=== PATIENT | male | born 2000 | race Caucasian/White ===

== ENCOUNTER 2022-01-22 00:53 | Observation (INO) | payer BC ==
--- OUTSIDE RECORDS SUMMARY | 2022-01-22 00:55 | XMS REPORT | Continuity of Care Document ---
:[address] [facility] [place] [facility] t Address [address] [place] [address] Care Team Providers Name Role Phone GEOFFREY MIN Attending Clinician Unavailable Sangeeta Attending Clinician Unavailable MARTHA BUTLER Attending Clinician Unavailable Physician, Primary or Family Admitting Clinician UnavailAndrew Foreman Admitting Clinician Unavailable Payers Payer Name Policy Type Policy Number Effective Date Expiration Date S ource Problems This patient has no known problems. Allergies, Adverse Reactions, Alerts Allergy Allergy Status Severity Reaction(s) Onset Inactive Treating Comm ents Source Name Type Date Date Clinician No Known DA Active U 2019-09 [facility] [place] [facility] No Known DA Active U 2019-09 [facility] 0-10 [place] [facility]: d [facility] No Known DA Active U 2001- [facility] Contrast 1-16 [place] Allergie 00:00: d 00 [facility] No Known DA Active U 2001- [facility] Drug 1-16 [place] Allergie 00:00: d [facility] No Known DA Active U 2001- [facility] Food 1-16 [place] [facility]: d [facility] No Known DA Active U 2001- [facility] Other 1-16 [facility] Allerg 00:00: d [facility] Medications This patient has no known medications. Procedures This patient has no known procedures. Encounters Start End Encounter Admission Attending Care Care Encounter Source Date/Time Date/Time Type Type Clinicians Facility Department ID 2020-12-22 Inpatient HCAKW MARGE [id number] [facility] 01:34:00 [id number] [facility] 2020-12-16 Inpatient [facility]KW MARGE [id number] [facility] 19:49:00 [id number] [facility] 2020-07-11 Inpatient HCAKW MARGE [id number] [facility] 19:05:00 [id number] [facility] 2020-06-13 Inpatient HCAKW MARGE [id number] [facility] 18:18:00 [id number] [facility] 2022-01-17 2022-01-17 Emergency E LARRY MIN [id number] LARRY 01:10:00 02:56:00 REGINA 2022-01-16 2022-01-16 Emergency EM Sangeeta, HCAKW MARGE [id number] [facility] 03:27:00 08:00:00 [place] 21 [facility] 2022-01-16 2022-01-16 Emergency EM Sangeeta, HCAKW THERON [id number] [facility] 03:27:00 08:00:00 Dana-Chin [id number] [facility] 2021-12-13 2021-12-13 Emergency E LARRY BUTLER DWAYNE 7501 DWAYNE 00:22:00 05:15:00 INDIRA Results Test Description Test Time Test Comments Results Result Comments Source BASIC METABOLIC PANEL 2022-01-16 05:25:00 Test Item Value Reference Range Interpretation Comme nts SODIUM (test code = NA) 139 mmol/L 137-145 N POTASSIUM (test code = K) 4.3 mmol/L 3.4-5.0 N CHLORIDE (test code = CL) 99 mmol/L 98-107 N CARBON DIOXIDE (test code = 30 mmol/L 22-30 N CO2) ANION GAP (test code = GAP) 15 GLUCOSE (test code = GLU) 275 mg/dL 74-106 H BLOOD UREA NITROGEN (test code 12 mg/dL 9-20 N = BUN) GLOMERULAR FILTRATION RATE 130 >60 T he estimated glomerular (test code = GFR) filtration rate is computed usingpatient ra ce, age (>18), sex, and serum creatinine. If anyof the neede d data elements are missing the Laboratory cannot compute an estimation of the glomerular filtration rate. CREATININE (test code = CREAT) 0.8 mg/dL 0.7-1.3 N CALCIUM (test code = CA) 9.4 mg/dL 8.4-10.2 N INDEX HEMOLYSIS (test code = 68 Index/DL 0-100 N HEMINDEX) [id number] 05:25:00 Test Item Value Reference Range Interpretation Comments TROPONIN-I < 0.012 ng/mL 0.012-0.033 L (test code = TROPI) Kimberly e be advised of the updated reference range s for the new Chemistry instrumentation . * * VITROS TROPONIN I CRITERIANORM AL PATIENT W/O CIRCULATING TNI: 0.012-0.033 ng/mLCIRCULATIN G TNI PRESENT: 0.034- 0.119 ng/mL(MAY BE AT RISK OF AMI)AMI DIAGNOS TIC CUTOFF: >/= 0.1 20 ng/mL~~~~~~~~~~ ~~~~~~~~~~ ~~~~~~~~~~~~~~~ ~~~~~~~~~~ ~~~~~~~~~~~~~~T he use of serial sampling and testing protoco l is arecommended pr actice.An elevated tropon in level alone is often not sufficient robertson iagnosis of myocardial i nfarction. Troponin result s obtained by different as says may vary.Evaluation of the extent of myoca rdial damage based on increase of troponin wou ld be valid only if similarmethodol ogy is used.~~~~~~~~~~ ~~~~~~~~~~ ~~~~~~~~~~~~~~~ ~~~~~~~~~~ ~~~~~~~~~~~~~~ A POSITIVE BIAS M AY OCCUR FOR PATIENTS TAKING BIOTIN SUPPLEMENTS~~~~ ~~~~~~~~~~ ~~~~~~~~~~~~~~~ ~~~~~~~~~~ ~~~~~~~~~~~~~~~ ~~~~~ CBC W/AUTO [id number] 04:53:00 Test Item Value Reference Range Interpretation Comments WHITE BLOOD CELL (test code = 10.8 x10 3/uL 5.0-12.0 N WBC) RED BLOOD CELL (test code = 5.63 x10 6/uL 4.70-6.10 N RBC) HEMOGLOBIN (test code = HGB) 16.8 g/dL 14.0-18.0 N HEMATOCRIT (test code = HCT) 47.8 % 37.0-49.0 N MEAN CELL VOLUME (test code = 85 fL 80-94 N MCV) MEAN CELL HGB (test code = MCH) 29.8 pg 27-31 N MEAN CELL HGB CONCENTRATION 35.1 g/dL 33-37 N (test code = MCHC) RED CELL DISTRIBUTION WIDTH 11.9 % 11.5-15.5 N (test code = RDW) PLATELET COUNT (test code = 255 x10 3/uL 130-400 N PLT) MEAN PLATELET VOLUME (test code 9.0 fL 9.4-16.4 L = MPV) NEUTROPHIL % (test code = NT%) 65.2 % 43-65 H IMMATURE GRANULOCYTE % (test 0.9 % 0.0-2.0 N code = IG%) LYMPHOCYTE % (test code = LY%) 25.2 % 20.5-45.5 N MONOCYTE % (test code = MO%) 7.2 % 5.5-11.7 N EOSINOPHIL % (test code = EO%) 1.0 % 0.9-2.9 N BASOPHIL % (test code = BA%) 0.5 % 0.2-1.0 N NUCLEATED RBC % (test code = 0.0 % 0-1.0 N NRBC%) NEUTROPHIL # (test code = NT#) 7.07 x10 3/uL 2.2-4.8 H IMMATURE GRANULOCYTE # (test 0.10 x10 3/uL 0-0.03 H code = IG#) LYMPHOCYTE # (test code = LY#) 2.73 x10 3/uL 1.3-2.9 N MONOCYTE # (test code = MO#) 0.78 x10 3/uL 0.3-0.8 N EOSINOPHIL # (test code = EO#) 0.11 x10 3/uL 0.0-0.2 N BASOPHIL # (test code = BA#) 0.05 x10 3/uL 0.0-0.1 N - XR CHEST 1 [id number] 04:15:00 [facility] 2000 Sex: M [place]: St: PRE Name: PIA BENÍTEZ [facility] : 2000 Age/S: 21/M [address] Unit #: [id number] Loc: [place] [address] Phys: Kaitlin Rutherford MD Acct: [id number] Dis Date: Status: PRE ER PHONE #: [phone] Exam Date: 01/16/2022350 FAX #: [phone] Reason: left chest pain EXAMS: CPT CODE: [id number] XR CHEST 1 V 09282 DICTATION LOCATION: H48 HISTORY: Male, 21 years of age with left chest pain EXAM: CHEST X-RAY, ONE VIEW COMPARISON: 12/22/2020 COMMENT: Frontal view of the chest is provided. No focal infiltrate, consolidation, mass lesion, or effusion is seen. Cardiac silhouette is within normal limits. No acute bony abnormalities. IMPRESSION: No acute infiltrate or effusion. at 0418 Reported and signed by: Leatha Dhillon MD CC: Technologist: CARLOS TALLEY Trnscrd Date/Time/By: 01/16/2022 (0415) : By: DavonteCLW PAGE 1 Signed Report [place]: St: PRE Name: PIA BENÍTEZ [facility] : 2000 Age/S: 21/M [address] Unit #: [id number] Loc: [place] [address] Phys: Kaitlin Rutherford MD Acct: [id number] Dis Date: Status: PRE ER PHONE #: [phone] Exam Date: 01/16/2022350 FAX #: [phone] Reason: left chest pain EXAMS: CPT CODE: [id number] XR CHEST 1 V 31298 <Continued> Orig Print D/T: S: 01/16/2022 (0418) PAGE 2 Signed ReportBASIC METABOLIC [id number] 04:47:00 Test Item Value Reference Range Interpretation Comments SODIUM (test code = 136 mmol/L 137-145 L NA) POTASSIUM (test code 4.0 mmol/L 3.4-5.0 N = K) CHLORIDE (test code = 98 mmol/L 98-107 N CL) CARBON DIOXIDE (test 30 mmol/L 22-30 N code = CO2) GLUCOSE (test code = 249 mg/dL 74-106 H GLU) BLOOD UREA NITROGEN 12 mg/dL 9-20 N (test code = BUN) GLOMERULAR FILTRATION 153 >60 The es timated RATE (test code = glomerular filtration GFR) rate is compute d usingpatient ra ce, age (>18), sex, and serum creatinine. If anyof the needed data elements are mi ssing the Laboratory cannot compute an carmen mation of the glomerul ar filtration rate . CREATININE (test code 0.7 mg/dL 0.7-1.3 N = CREAT) CALCIUM (test code = 9.2 mg/dL 8.4-10.2 N CA) CBC W/AUTO [id number] 04:35:00 Test Item Value Reference Range Interpretation Comments WHITE BLOOD CELL (test code = 8.1 x10 3/uL 5.0-12.0 N WBC) RED BLOOD CELL (test code = 5.34 x10 6/uL 4.70-6.10 N RBC) HEMOGLOBIN (test code = HGB) 15.6 g/dL 14.0-18.0 N HEMATOCRIT (test code = HCT) 43.6 % 37.0-49.0 N MEAN CELL VOLUME (test code = 82 fL 80-94 N MCV) MEAN CELL HGB (test code = MCH) 29.2 pg 27-31 N MEAN CELL HGB CONCENTRATION 35.8 g/dL 33-37 N (test code = MCHC) RED CELL DISTRIBUTION WIDTH 12.1 % 11.5-15.5 N (test code = RDW) PLATELET COUNT (test code = 289 x10 3/uL 130-400 N PLT) MEAN PLATELET VOLUME (test code 9.8 fL 9.4-16.4 N = MPV) NEUTROPHIL % (test code = NT%) 49.6 % 43-65 N IMMATURE GRANULOCYTE % (test 1.6 % 0.0-2.0 N code = IG%) LYMPHOCYTE % (test code = LY%) 36.7 % 20.5-45.5 N MONOCYTE % (test code = MO%) 8.3 % 5.5-11.7 N EOSINOPHIL % (test code = EO%) 3.2 % 0.9-2.9 H BASOPHIL % (test code = BA%) 0.6 % 0.2-1.0 N NUCLEATED RBC % (test code = 0.0 % 0-1.0 N NRBC%) NEUTROPHIL # (test code = NT#) 4.03 x10 3/uL 2.2-4.8 N IMMATURE GRANULOCYTE # (test 0.13 x10 3/uL 0-0.03 H code = IG#) LYMPHOCYTE # (test code = LY#) 2.98 x10 3/uL 1.3-2.9 H MONOCYTE # (test code = MO#) 0.67 x10 3/uL 0.3-0.8 N EOSINOPHIL # (test code = EO#) 0.26 x10 3/uL 0.0-0.2 H BASOPHIL # (test code = BA#) 0.05 x10 3/uL 0.0-0.1 N - CT HEAD/BRAIN W/O [id number] 02:27:00 [facility] [place] : 2000 Sex: M FAX: Tobi Fenton MD R1 [place]: BEN St: REG Name: PIA BENÍTEZ [facility] : 2000 Age/S: 20/M [address] Unit: [id number] Loc: [place] [address] Phys: oTbi Fenton MD R1 Acct: [id number] Dis Date: Status: REG ER PHONE #: [phone] Exam Date: 12/22/2020222 FAX #: [phone] Reason: lightheaded EXAMS: CPT CODE: [id number] CT HEAD/BRAIN W/O CONT 29521 EXAM: - CT HEAD/BRAIN W/O CONT LOCATION: H61 CLINICAL HISTORY/INDICATION: lightheaded TECHNIQUE: HelicalCT acquisition of the head was obtained without IV contrast. Images were reconstructed in theaxial, sagittal and coronal planes. This examination was performed according to our departmental dose optimization program, which includes automated exposure control, adjustment of the mA and/or kV according to patient size, and/or use of iterative reconstruction technique. COMPARISON: Head CT 05/28/2019. FINDINGS: SULCI AND VENTRICLES:Appropriate for age. No hydrocephalus. PARENCHYMA: No CT evidence of acute large territorial infarct, parenchymal hemorrhage or mass effect. EXTRA AXIAL SPACE: No epidural or subdural hematoma. No mass. SCALP: No abnormalities. BONES: Noskull fractures or aggressive calvarial lesions. PARTIALLY IMAGED FACE /PARANASAL SINUSES: Small mucous retention cyst in the anterior wall the right maxillary sinus. MASTOID AIR CELLS: No effusion. IMPRESSION: 1. No CT evidence of acute intracranial process. at 0227 Reported and signed by: Ramone Joyner MD PAGE 1 Signed Report (CONTINUED) FAX: Tobi Fenton MD R1 [place]: St: REG -- Name: PIA BENÍTEZ [facility] : 2000 Age/S: 20/M [address] Unit: [id number] Loc: [place] [address] Phys: Tobi Fenton MD R1 Acct: [id number] Dis Date: Status: REG ER PHONE #: [phone] ExamDate: 12/22/2020222 FAX #: [phone] Reason: lightheaded EXAMS: CPT CODE: [id number] CT HEAD/BRAIN W/O CONT 44330 <Continued> CC: Tobi Fenton MD Technologist: Alyssa Mendieta; RYDER LY Trnshitalrd Dt/Tm: 12/22/2020 (0227) [id number].[email or web address] Orig Print D/T: S: 12/22/2020 (0230 PAGE 2 Signed Report- XR CHEST 1 [id number] 01:58:00 [facility] : 2000 Sex: M FAX: Tobi Fenton MD R1 [place]: St: REG Name: PIA BENÍTEZ [facility] : 2000 Age/S: 20/M [address] Unit #: [id number] Loc: [place] [address] Phys: Tobi Fenton MD R1 Acct: [id number] Dis Date: Status: REG ER PHONE #: [phone] Exam Date: 12/22/2020146 FAX #: [phone] Reason: lightheaded EXAMS: CPT CODE: [id number] XR CHEST 1 V 58922 - XR CHEST 1 V, 12/22/2020 1:42 AM Reason For Examination: lightheaded Comparison: December 16, 2020 Location: R16 Findings LUNGS: No definite pulmonary edema or consolidation PLEURA: No pleural effusions CARDIOMEDIASTINAL SILHOUETTE Unremarkable IMPRESSION: No plain film evidence of acute cardiopulmonary abnormality at 0158 Reported and signed by: Odilia Grant MD CC: Tobi Fenton MD Technologist: [facility] TALLEY [facility] Date/Time/By: 12/22/2020 (0158): By: [email or web address] PAGE 1 Signed Report FAX: Tobi Fenton MD R1 [place]: St: REG Name: PIA BENÍTEZ [facility] : 2000 Age/S: 20/M [address] Unit #: [id number] Loc: [place] [address] Phys: Tobi Fenton MD R1 Acct: [id number] Dis Date: Status: REG ER PHONE #: [phone] Exam Date: 12/22/2020146 FAX #: [phone] Reason: lightheaded EXAMS: CPT CODE: [id number] XR CHEST 1 V 76835 <Continued> Orig Print D/T: S: 12/22/2020 (0201) PAGE 2 Signed Report- XR CHEST 1 [id number] 20:14:00 [facility] : 2000 Sex: M [place]: St: REG Name: PIA BENÍTEZ [facility] : 2000 Age/S: 20/M [address] Unit #: [id number] Loc: [place] [address] Phys: Saleem Castano NP Acct: [id number] Dis Date: Status: REG ER PHONE #: [phone] Exam Date: 12/16/20202003 FAX #: [phone] Reason: DIZZINESS EXAMS: CPT CODE: [id number] XR CHEST 1 V 77731 Chest Radiograph History: DIZZINESS Comparison: July 11, 2020 Location: [facility] A single frontal view of the chest is submitted. The heart appears unchanged in size. Pulmonary vasculature is unremarkable. The visualized lung oliveira appear to be free of disease. The bones appear unchanged. IMPRESSION: There isno radiographic evidence of acute cardiopulmonary disease. at 2014 Reported and signed by: Geoffrey Cordon MD CC: Technologist: Alyssa Mendieta; STUDENT 2ND YEAR [employer] Date/Time/By: 12/16/2020 (2013) : By: DavontePMT PAGE 1 Signed Report [place]: St: REG Name: PIA BENÍTEZ [facility] [place] : 2000 Age/S: 20/M [address] Unit #: [id number] Loc: [place] [address] Phys: Saleem Castano CUSTOMER LEADER Acct: [id number] Dis Date: Status: REG ER PHONE #: [phone] Exam Date: 12/16/20202003 FAX #: [phone] Reason: DIZZINESS EXAMS: CPT CODE: [id number] XR CHEST 1 V 29703 <Continued> Orig Print D/T: S: 12/16/2020 (2016) PAGE 2 Signed ReportCoronavirus 2019 nCoV [id number] 20:36:00 Test Item Value Reference Range Interpretation Comments Coronavirus 2018 Negative NEGATIVE This test has been nCoV Bedside (test authorize d by FDA under code = [id number]) an EUA for use byauthorized laboratories; This test has been author ized only for the detecti on ofnucleic acid from SARS-CoV-2, not for any other viruses orpathogens; an d This test is only au thorized for the duratio n of thedeclaration that circumstances e xist justifying theauthorizatio n of emergency use o f in vitro diagnostic test sfor detection and/o r diagnosis of CO VID-19 under Swosnir88 4(b)(1) of the Act, 21 U.S .C. 360bbb-3(b)(1), unless theauthorizatio n is terminated or r evoked sooner. LACTIC [id number] 20:23:00 Test Item Value Reference Range Interpretation Comments LACTIC ACID (test code = LACT) 1.6 mmol/L 0.7-2.0 N COMPREHENSIVE METABOLIC [id number] 20:23:00 Test Item Value Reference Range Interpretation Comments SODIUM (test code = 136 mmol/L 137-145 L NA) POTASSIUM (test code 3.8 mmol/L 3.4-5.0 N = K) CHLORIDE (test code 102 mmol/L 98-107 N = CL) CARBON DIOXIDE (test 24 mmol/L 22-30 N code = CO2) GLUCOSE (test code = 175 mg/dL 74-106 H GLU) BLOOD UREA NITROGEN 16 mg/dL 9-20 N (test code = BUN) GLOMERULAR 132 >60 The estimated FILTRATION RATE glomerular f iltration (test code = GFR) rate is co mputed usingpatient ra ce, age (>18), sex, and serum creatinine. If anyof the needed data elements are mi ssing the Laboratory cannot compute an carmen mation of the glomerul ar filtration rate . CREATININE (test 0.8 mg/dL 0.7-1.3 N code = CREAT) TOTAL PROTEIN (test 7.8 g/dL 6.3-8.2 N code = PROT) ALBUMIN (test code = 4.9 g/dL 3.5-5.0 N ALB) CALCIUM (test code = 9.9 mg/dL 8.4-10.2 N CA) BILIRUBIN TOTAL 0.6 mg/dL 0.2-1.3 N "A positive bias may (test code = BILT) occur for patients taking Eltrombo pag(a bone marrow sti mulant used to treat thrombocytopeni a andaplastic ane elisabet)." BILIRUBIN CONJUGATED 0 mg/dL 0-0.3 N "A posi tive bias may (test code = BILCON) occur f or patients taking Eltrombo pag(a bone marrow sti mulant used to treat thrombocytopeni a andaplastic ane elisabet)." C ONJUGATE D BILIRUBIN IS THE REPLACEMENT ASS AY FOR DIRECTBILIRUBIN . BILIRUBIN 0.6 mg/dL 0-1.1 N UNCONJUGATED (test code = BILUNC) SGOT/AST (test code 20 U/L 15-46 N = AST) SGPT/ALT (test code 21 U/L 0-34 N = ALT) ALKALINE PHOSPHATASE 124 U/L 38-126 N (test code = ALKP) CREATINE KINASE (CK)2020-07-11 20:23:00 Test Item Value Reference Range Interpretation Comments CREATINE KINASE (CK) (test code = CK) 71 U/L 55-170 N [id number] 20:23:00 Test Item Value Reference Range Interpretation Comments LIPASE (test code = LIP) 23 U/L 23-300 N COMPREHENSIVE METABOLIC [id number] 20:18:00 Test Item Value Reference Range Interpretation Comments SODIUM (test code = 136 mmol/L 137-145 L NA) POTASSIUM (test code 3.8 mmol/L 3.4-5.0 N = K) CHLORIDE (test code 102 mmol/L 98-107 N = CL) CARBON DIOXIDE (test 24 mmol/L 22-30 N code = CO2) GLUCOSE (test code = 175 mg/dL 74-106 H GLU) BLOOD UREA NITROGEN 16 mg/dL 9-20 N (test code = BUN) GLOMERULAR 132 >60 The estimated FILTRATION RATE glomerular f iltration (test code = GFR) rate is co mputed usingpatient ra ce, age (>18), sex, and serum creatinine. If anyof the needed data elements are mi ssing the Laboratory cannot compute an carmen mation of the glomerul ar filtration rate . CREATININE (test 0.8 mg/dL 0.7-1.3 N code = CREAT) TOTAL PROTEIN (test 7.8 g/dL 6.3-8.2 N code = PROT) ALBUMIN (test code = 4.9 g/dL 3.5-5.0 N ALB) CALCIUM (test code = 9.9 mg/dL 8.4-10.2 N CA) BILIRUBIN TOTAL 0.6 mg/dL 0.2-1.3 N "A positive bias may (test code = BILT) occur for patients taking Eltrombo pag(a bone marrow sti mulant used to treat thrombocytopeni a andaplastic ane elisabet)." BILIRUBIN CONJUGATED 0 mg/dL 0-0.3 N "A posi tive bias may (test code = BILCON) occur f or patients taking Eltrombo pag(a bone marrow sti mulant used to treat thrombocytopeni a andaplastic ane elisabet)." C ONJUGATE D BILIRUBIN IS THE REPLACEMENT ASS AY FOR DIRECTBILIRUBIN . BILIRUBIN 0.6 mg/dL 0-1.1 N UNCONJUGATED (test code = BILUNC) SGOT/AST (test code 20 U/L 15-46 N = AST) SGPT/ALT (test code U/L 0-34 = ALT) ALKALINE PHOSPHATASE 124 U/L 38-126 N (test code = ALKP) CREATINE KINASE (CK)2020-07-11 20:18:00 Test Item Value Reference Range Interpretation Comments CREATINE KINASE (CK) (test code = CK) 71 U/L 55-170 N [id number] 20:18:00 Test Item Value Reference Range Interpretation Comments LIPASE (test code = LIP) U/L 23-300 TROPONIN I [id number] 20:05:00 Test Item Value Reference Range Interpretation Comments TROPONIN I RAPID 0.00 ng/mL 0.00-0.079 N ISTAT (test code = TROPONIN I TROPIRAP) CRITERIA0.00-0. 08 ng/mL - Negative>0.08 n g/mL - Positive The us e of serial sampling and te sting protocol is are commended practice.An sophia vated troponin level alone is often not suffi cient fordiagnosis of myocardial infarction. Tro ponin results obtaine d by different assay s may vary.Evaluation of the extent of myoca rdial damage based on increase of troponin would be valid only if similar methodology is used. CBC W/AUTO [id number] 20:02:00 Test Item Value Reference Range Interpretation Comments WHITE BLOOD CELL (test code = 14.2 x10 3/uL 5.0-12.0 H WBC) RED BLOOD CELL (test code = 5.70 x10 6/uL 4.70-6.10 N RBC) HEMOGLOBIN (test code = HGB) 16.9 g/dL 14.0-18.0 N HEMATOCRIT (test code = HCT) 48.4 % 37.0-49.0 N MEAN CELL VOLUME (test code = 85 fL 80-94 N MCV) MEAN CELL HGB (test code = 29.6 pg 27-31 N MCH) MEAN CELL HGB CONCENTRATION 34.9 g/dL 33-37 N (test code = MCHC) RED CELL DISTRIBUTION WIDTH 12.1 % 11.5-15.5 N (test code = RDW) PLATELET COUNT (test code = 241 x10 3/uL 130-400 N PLT) MEAN PLATELET VOLUME (test 9.0 fL 9.4-16.4 L code = MPV) NEUTROPHIL % (test code = NT%) 79.1 % 43-65 H IMMATURE GRANULOCYTE % (test 0.4 % 0.0-2.0 N code = IG%) LYMPHOCYTE % (test code = LY%) 12.6 % 20.5-45.5 L MONOCYTE % (test code = MO%) 7.0 % 5.5-11.7 N EOSINOPHIL % (test code = EO%) 0.6 % 0.9-2.9 L BASOPHIL % (test code = BA%) 0.3 % 0.2-1.0 N NUCLEATED RBC % (test code = 0.0 % 0-1.0 N NRBC%) NEUTROPHIL # (test code = NT#) 11.25 x10 3/uL 2.2-4.8 H IMMATURE GRANULOCYTE # (test 0.05 x10 3/uL 0-0.03 H code = IG#) LYMPHOCYTE # (test code = LY#) 1.79 x10 3/uL 1.3-2.9 N MONOCYTE # (test code = MO#) 1.00 x10 3/uL 0.3-0.8 H EOSINOPHIL # (test code = EO#) 0.08 x10 3/uL 0.0-0.2 N BASOPHIL # (test code = BA#) 0.04 x10 3/uL 0.0-0.1 N - XR CHEST 1 [id number] 19:35:00 [facility] 2000 Sex: M [place]: St: PRE Name: PIA BENÍTEZ [facility] : 2000 Age/S: 19/M [address] Unit #: [id number] Loc: [place] [address] Phys: Saleem Castano NP Acct: [id number] Dis Date: Status: PRE ER PHONE #: [phone] Exam Date: 07/11/20201927 FAX #: [phone] Reason: CHEST PAIN EXAMS: CPT CODE: [id number] XR CHEST 1 V 80340 Chest one view AP 07/11/2020 7:35 PM CLINICAL HISTORY: Chest pain COMPARISON: None available LOCATION: W1 FINDINGS: The lungs are clear. Cardiomediastinal contours are within normal limits. The central pulmonary vasculature is not engorged. IMPRESSION: Unremarkable frontal chest radiograph. at 1935 Reported and signed by: Ishmael Bello MD CC: Technologist: NICOLETTE WHITFIELD (Evon) Trnscrd Date/Time/By: 07/11/2020 (1934) : By: [email or web address] PAGE 1 Signed Report [place]: [facility]: PRE Name: PIA BENÍTEZ [facility] : 2000 Age/S: 19/M [address] Unit #: [id number] Loc: [place] [address] Phys: Saleem Castano CUSTOMER LEADER Acct: [id number] Dis Date: Status: PRE ER PHONE #: [phone] Exam Date: 07/11/20201927 FAX #: [phone] Reason: CHEST PAIN EXAMS: CPT CODE: [id number] XR CHEST 1 V [id number] <Continued> Orig Print D/T: S: 07/11/2020 (1937) PAGE 2 Signed Report- XR HAND 3 + V [id number] 19:37:00 [place]: St: REG Name: PIA BENÍTEZ [facility] : 2000 Age/S: 19/M [address] Unit#: [id number] Loc: [place] [address] Phys: Sarah Beth Hall CUSTOMER LEADER Acct: [id number] Dis Date: Status: REG ER PHONE #: [phone] Exam Date: 06/13/20201914 FAX #: [phone] Reason: left thumb injury EXAMS: CPT CODE: [id number] XR HAND 3 + [place] [address] Examination: Left hand 3 views Location code: H60 Comparison: None Discussion: Clinical history is remarkable for trauma. There is no evidence for acute fracture or dislocation. No lytic or blastic lesions identified. No other bony or soft tissue abnormalities identified. Impression: 1. Normal left hand. at 1937 Reported and signed by: Tomy Ponce MD CC: Technologist: Alyssa Mendieta Trniard Date/Time/By: 06/13/2020 (1936) : By: [email or web address] PAGE 1 Signed Report [place]: [facility]: REG -- Name: PIA BENÍTEZ [facility] : 2000 Age/S: 19/M [address] Unit #: [id number] Loc: [place] [address] Phys: Sarah Beth Hall CUSTOMER LEADER Acct: [id number] Dis Date: Status: REG ER PHONE #: [phone] Exam Date: 06/13/20201914 FAX #: [phone] Reason: left thumb injury EXAMS: CPT CODE: [id number] XR HAND 3 + [place] [address] <Continued> Orig Print D/T: S: 06/13/2020 (1939) PAGE 2 Signed Report- XR ELBOW 3 + V [id number] 22:07:00 [place]: [facility]: REG Name: PIA BENÍTEZ [facility] : 2000 Age/S: 18/M [address] Unit#: [id number] Loc: [place] [address] Phys: Sarah Beth Hall CUSTOMER LEADER Acct: [id number] Dis Date: Status: REG ER PHONE #: [phone] Exam Date: 05/28/20192144 FAX #: [phone] Reason: fall, right elbow injury EXAMS: CPT CODE: [id number] XR ELBOW 3 + V RT 00048 Site ID: [id number] INDICATION: Fall, right elbow injury FINDINGS: Osseous alignment and bone mineral density are normal. No fracture or destructive bone lesion. Joint spaces are well-maintained. No joint effusion demonstrated. IMPRESSION: Negative right elbow x-rays at 2207 Reported and signed by: Eligio Fulton MD CC: Technologist: JULEE MEADOWS Trnscrd Date/Time/By: 05/28/2019 (2206): By: [email or web address] PAGE 1 Signed Report [place]: St: REG Name: PIA BENÍTEZ [facility] : 2000 Age/S: 18/M [address] Unit #: [id number] Loc: [place] [address] Phys: Sarah Beth Hall CUSTOMER LEADER Acct: [id number] Dis Date: Status: REG ER PHONE #: [phone] Exam Date: 05/28/20192144 FAX #: [phone] Reason: fall, right elbow injury EXAMS: CPT CODE: [id number] XR ELBOW 3 + V RT 22391 <Continued> Orig Print D/T: S: 05/28/2019 (8000) PAGE 2 Signed Report- CT C-SPINE W/O [id number] 21:50:00 [place]: St: REG Name: PIA BENÍTEZ [facility] [place] : 2000 Age/S: 18/M [address] Unit: [id number] Loc: [place] [address] Phys: IsabelSarah Beth Kehinde CUSTOMER LEADER Acct: [id number] Dis Date: Status: REG E R PHONE #: [phone] Exam Date: 05/28/20192134 FAX #: [phone] Reason: fall, head injury EXAMS: CPT CODE: [id number] CT C-SPINE W/O CONT 30328 Site ID: [id number] CT head TECHNIQUE: CT examination of the brain was performed without contrast on a helical scanner. Scanning conducted from skull base to vertex in the axial plane acquiring 5mm slice thickness. Coronal and sagittal two-dimensional reformatted imaging performed. CT dose lowering technique utilized, with adjustment of MA/kV according to patient size and automated exposure control. CLINICAL HISTORY: Fall, head injury FINDINGS: No mass- effect, midline shift, extra-axial fluid collections or intracranial hemorrhage is seen. Cerebral and cerebellar hemispheres are well- formed. There is no evidence for acute cerebral edema. The bony calvarium and visualized paranasal sinuses are normal. No focal soft tissue swelling or scalp hematoma. IMPRESSION: Negative noncontrasthead CT. CT cervical spine TECHNIQUE: CT examination of the cervical spinewithout contrast was performed on a helical scanner without contrast with coronal and sagittal reformatted imaging obtained. Scanning conducted in axial plane from skull base down to upper thoracic spine. 1.25mm slice thickness acquired. CT dose lowering technique utilized, with adjustment of MA/kV according to patient size and automated exposure control. CLINICAL HISTORY: Fall PAGE 1 Signed Report (CONTINUED) [place]: St: REG -- Name: PIA BENÍTEZ [facility] : 2000 Age/S: 18/M [address] Unit: [id number] Loc: [place] [address] Phys: Sarah Beth Hall CUSTOMER LEADER Acct: [id number] Dis Date: Status: REG ER PHONE #: [phone] ExamDate: 05/28/20192134 FAX #: [phone] Reason: fall, head injury EXAMS: CPT CODE: [id number] CT C-SPINE W/O CONT 92574 <Continued> FINDINGS: Normal cervical lordosis. No acute fracture or subluxation. Prevertebral soft tissues appear unremarkable. The atlantoaxial joint is unremarkable. Intervertebral disc heights appear well-maintained throughout. The visualized lung apices are normal. IMPRESSION: No acute fracture or subluxation of the cervical spine. at 2150 Reported and signed by: Eligio Fulton MD CC: Technologist: DARNELL LEHMAN Trnscrd Dt/Tm: 05/28/2019 (2149) [email or web address] Orig Print D/T: S: 05/28/2019 (2153 PAGE 2 Signed Report- CT HEAD/BRAIN W/O [id number] 21:50:00 [place]: St: REG Name: PIA BENÍTEZ [facility] : 2000 Age/S: 18/M [address] Unit: [id number] Loc: [place] [address] Phys: Sarah Beth Hall CUSTOMER LEADER Acct: [id number] Dis Date: Status: REG E R PHONE #: [phone] Exam Date: 05/28/20192134 FAX #: [phone] Reason: fall, head injury EXAMS: CPT CODE: [id number] CT HEAD/BRAIN W/O CONT 37045 Site ID: [id number] CT head TECHNIQUE: CT examination of the brain was performed without contrast on a helical scanner. Scanning conducted from skull base to vertex in the axial plane acquiring 5mm slice thickness. Coronal and sagittal two-dimensional reformatted imaging performed. CT dose lowering technique utilized, with adjustment of MA/kV according to patient size and automated exposure control. CLINICAL HISTORY: Fall, head injury FINDINGS: No mass- effect, midline shift, extra-axial fluid collections or intracranial hemorrhage is seen. Cerebral and cerebellar hemispheres are well- formed. There is no evidence for acute cerebral edema. The bony calvarium and visualized paranasal sinuses are normal. No focal soft tissue swelling or scalp hematoma. IMPRESSION: Negative noncontrasthead CT. CT cervical spine TECHNIQUE: CT examination of the cervical spinewithout contrast was performed on a helical scanner without contrast with coronal and sagittal reformatted imaging obtained. Scanning conducted in axial plane from skull base down to upper thoracic spine. 1.25mm slice thickness acquired. CT dose lowering technique utilized, with adjustment of MA/kV according to patient size and automated exposure control. CLINICAL HISTORY: Fall PAGE 1 Signed Report (CONTINUED) [place]: St: REG -- Name: JEYSONPIA BIANCA [facility] : 2000 Age/S: 18/M [address] Unit: [id number] Loc: [place] [address] Phys: Sarah Beth Hall CUSTOMER LEADER Acct: [id number] Dis Date: Status: REG ER PHONE #: [phone] ExamDate: 05/28/20192134 FAX #: [phone] Reason: fall, head injury EXAMS: CPT CODE: [id number] CT HEAD/BRAIN W/O CONT 74013 <Continued> FINDINGS: Normal cervical lordosis. No acute fracture or subluxation. Prevertebral soft tissues appear unremarkable. The atlantoaxial joint is unremarkable. Intervertebral disc heights appear well-maintained throughout. The visualized lung apices are normal. IMPRESSION: No acute fracture or subluxation of the cervical spine. at 2150 Reported and signed by: Eligio Fulton MD CC: Technologist: DARNELL LEHMAN Trnscrd Dt/Tm: 05/28/2019 (215) [email or web address] Orig Print D/T: S: 05/28/2019 (2153 PAGE 2 Signed Report
[2022-01-22] MEDS ORDERED: NA CHLORIDE 0.9% 1,000 ML ONE (02:13)
[2022-01-22 02:32] LABS: Absolute Lymphocytes (CBC) 2.6 K/uL (0.7-4.9); Hematocrit 45.7 % (39.6-49.0); Lymphocytes % 19.7 % (15.3-44.8); MPV 7.5 fL (7.6-11.3); RBC Red Blood Cell Count 5.25 M/uL (4.33-5.43)
[2022-01-22 02:53] LABS: Bilirubin Total 0.4 mg/dL (0.2-1.0); Potassium 3.5 mmol/L (3.5-5.1); Protein, Total 6.9 g/dL (6.4-8.2); Troponin High Sensitivity 23.4 pg/mL (<58.9)
--- NOTE | 2022-01-22 03:10 | EDPHYS ---
Physician Documentation [facility] Name: Abdullahi Alston Age: 21 yrs Sex: Male : 2000 Arrival Date: 01/22/2022 Time: 00:55 Bed 18 Private MD: ED Physician Elias Tony HPI: 01/22 01:39 This 21 yrs old Male presents to ER via EMS with complaints of Syncope. zuri 01:39 The patient has experienced near-syncope, almost passed out, felt generally weak, felt zuri like heart was pounding. Onset: The symptoms/episode began/occurred just prior to arrival. Historical: - Allergies: 01:12 Aspirin; tw5 - Immunization history:: Flu vaccine is not up to date. - Social history:: Smoking status: Patient denies any tobacco usage or history of. ROS: 01:40 Constitutional: Negative for fever, chills, and weight loss, Eyes: Negative for injury, zuri pain, redness, and discharge, ENT: Negative for injury, pain, and discharge, Neck: Negative for injury, pain, and swelling, Respiratory: Negative for shortness of breath, cough, wheezing, and pleuritic chest pain, Abdomen/GI: Negative for abdominal pain, nausea, vomiting, diarrhea, and constipation, Back: Negative for injury and pain, : Negative for injury, bleeding, discharge, and swelling, MS/Extremity: Negative for injury and deformity, Skin: Negative for injury, rash, and discoloration, Neuro: Negative for headache, weakness, numbness, tingling, and seizure, Psych: Negative for depression, anxiety, suicide ideation, homicidal ideation, and hallucinations, Allergy/Immunology: Negative for hives, rash, and allergies, Endocrine: Negative for neck swelling, polydipsia, polyuria, polyphagia, and marked weight changes, Hematologic/Lymphatic: Negative for swollen nodes, abnormal bleeding, and unusual bruising. 01:40 Cardiovascular: Positive for chest pain, of the chest. Exam: 01:40 Constitutional: This is a well developed, well nourished patient who is awake, alert, zuri and in no acute distress. Head/Face: Normocephalic, atraumatic. Eyes: Pupils equal round and reactive to light, extra-ocular motions intact. Lids and lashes normal. Conjunctiva and sclera are non-icteric and not injected. Cornea within normal limits. Periorbital areas with no swelling, redness, or edema. ENT: Nares patent. No nasal discharge, no septal abnormalities noted. Tympanic membranes are normal and external auditory canals are clear. Oropharynx with no redness, swelling, or masses, exudates, or evidence of obstruction, uvula midline. Mucous membranes moist. Neck: Trachea midline, no thyromegaly or masses palpated, and no cervical lymphadenopathy. Supple, full range of motion without nuchal rigidity, or vertebral point tenderness. No Meningismus. Chest/axilla: Normal chest wall appearance and motion. Nontender with no deformity. No lesions are appreciated. Cardiovascular: Regular rate and rhythm with a normal S1 and S2. No gallops, murmurs, or rubs. Normal PMI, no JVD. No pulse deficits. Respiratory: Lungs have equal breath sounds bilaterally, clear to auscultation and percussion. No rales, rhonchi or wheezes noted. No increased work of breathing, no retractions or nasal flaring. Abdomen/GI: Soft, non-tender, with normal bowel sounds. No distension or tympany. No guarding or rebound. No evidence of tenderness throughout. Back: No spinal tenderness. No costovertebral tenderness. Full range of motion. Male : Normal genitalia with no discharge or lesions. Skin: Warm, dry with normal turgor. Normal color with no rashes, no lesions, and no evidence of cellulitis. MS/ Extremity: Pulses equal, no cyanosis. Neurovascular intact. Full, normal range of motion. Neuro: Awake and alert, GCS 15, oriented to person, place, time, and situation. Cranial nerves II-XII grossly intact. Motor strength 5/5 in all extremities. Sensory grossly intact. Cerebellar exam normal. Normal gait. Psych: Awake, alert, with orientation to person, place and time. Behavior, mood, and affect are within normal limits. 03:47 ECG was reviewed by the Attending Physician. [facility] 03:48 ECG was reviewed by the Attending Physician. [facility] Vital Signs: 01:09 BP 123 / 67; Pulse 73; Resp 18; Temp 98.8(O); Pulse Ox 96% on R/A; Weight 92.99 kg; tw5 Height 5 ft. 11 in. (180.34 cm); Pain 0/10; 02:18 BP 103 / 53 Supine; Pulse 75; asad 02:19 BP 113 / 66 Sitting; Pulse 71; asad 02:19 BP 80 / 59 Standing; Pulse 109; asad 02:53 BP 99 / 53; Pulse 87; Resp 16; Temp 98.2; Pulse Ox 100% on R/A; Pain 0/10; asad 05:39 BP 113 / 56; Pulse 68; Resp 16; Pulse Ox 98% on R/A; Pain 0/10; asad 01:09 Body Mass Index 28.59 (92.99 kg, 180.34 cm) tw5 MDM: 01:22 Patient medically screened. zuri 01:42 Differential diagnosis: abnormal EKG, acute pericarditis, anxiety, coronary artery zuri disease congestive heart failure Cholelithiasis costochondritis, esophagitis, gastritis, hiatal hernia, pancreatitis, peptic ulcer disease, pneumonia, pneumothorax, pulmonary embolus, stable angina, thoracic aortic disection. HEART Score: History: Slightly Suspicious (0), ECG: Normal (0), Age: < or = 45 years (0), Risk Factors: 1 or 2 risk factors (1), [DM] [+ Family HX] Troponin: < or = 1 x Normal Limit (0). Differential Diagnosis: cardiac arrhythmia, drug effect, GI bleed. The patient's deep vein thrombosis risk score was calculated as follows: Total Score: 0. This patient was found to be at low risk for a deep vein thrombosis by using the Well's assessment criteria. The patient's pulmonary embolism risk score was calculated as follows: Total Score: 0-2 points. This patient was found to be at low risk for a pulmonary embolism by using the Well's assessment criteria. CRISTIAN Risk Score: TOTAL SCORE = 0. Data reviewed: vital signs, nurses notes, EMS record, lab test result(s), EKG, radiologic studies, plain films. Data interpreted: cardiac monitor technician: rate is 73 beats/min, rhythm is regular, Pulse oximetry: on room air is 96 %. Test interpretation: by ED physician or midlevel provider: ECG, plain radiologic studies. Counseling: I had a detailed discussion with the patient and/or guardian regarding: the historical points, exam findings, and any diagnostic results supporting the discharge/admit diagnosis, lab results, radiology results, the need for outpatient follow up, for definitive care, a safety sitter, a family practitioner. 01/22 01:36 Order name: Troponin High Sensitivity; Complete Time: 03:08 [facility] 01/22 01:36 Order name: CBC with Diff; Complete Time: 03:08 [facility] 01/22 01:36 Order name: Comprehensive Metabolic Panel; Complete Time: 03:08 [facility] 01/22 01:36 Order name: D-Dimer; Complete Time: 03:08 [facility] 01/22 03:16 Order name: Troponin High Sensitivity [facility] 01/22 03:43 Order name: SARS-COV-2 RT PCR (Document "Date of Onset" if Symptomatic) [facility] 01/22 07:58 Order name: Glucose, Ancillary Testing [facility] 01/22 08:19 Order name: T4 Free [facility] 01/22 08:19 Order name: Lipase [facility] 01/22 08:19 Order name: Thyroid Stimulating Hormone [facility] 01/22 11:22 Order name: Glucose, Ancillary Testing [facility] 01/22 13:29 Order name: Urine Dipstick-Ancillary [facility] 01/22 13:45 Order name: Urinalysis [facility] 01/22 13:51 Order name: Urine Drug Screen [facility] 01/22 01:22 Order name: EKG; Complete Time: 01:22 [facility] 01/22 01:22 Order name: EKG - Nurse/Tech; Complete Time: 02:07 [facility] 01/22 01:22 Order name: Orthostatics; Complete Time: 02:18 [facility] 01/22 01:22 Order name: PO challenge; Complete Time: 02:07 [facility] 01/22 01:36 Order name: Chest Single View XRAY [facility] 01/22 01:52 Order name: IV Start; Complete Time: 02:06 mb7 01/22 03:15 Order name: EKG; Complete Time: 03:16 [facility] 01/22 03:15 Order name: EKG - Nurse/Tech; Complete Time: 03:28 [facility] EC:47 Rate is 75 beats/min. Rhythm is regular. QRS [place] is Normal. MO interval is normal. QRS zuri interval is normal. QT interval is normal. No Q waves. T waves are Normal. ST Segment is depressed in leads I, II, aVL. Interpreted by me. Reviewed by me. 03:48 Rate is 69 beats/min. Rhythm is regular. QRS [place] is Normal. MO interval is normal. QRS zuri interval is normal. QT interval is normal. No Q waves. T waves are Normal. ST Segment is depressed in leads I, II, aVL. Interpreted by me. Reviewed by me. Administered Medications: 02:18 Drug: NS 0.9% 1000 ml Route: IV; Rate: 1 bolus; Site: right forearm; asad 02:54 Follow up: IV Status: Completed infusion; IV Intake: 1000ml asad 04:07 Drug: PlaVIX (clopidogrel) 75 mg Route: PO; asad 09:00 Follow up: Response: No adverse reaction ll1 04:08 Drug: Lovenox (enoxaparin) 90 mg Route: Sub-Q; Site: abdomen; asad 09:00 Follow up: Response: No adverse reaction ll1 05:39 Drug: XANax (alprazolam) Tablet 0.25 mg Route: PO; asad 06:29 Follow up: Response: No adverse reaction asad Point of Care Testing: Blood Glucose: 08:59 Blood Glucose: 91 mg/dL; ll1 Ranges: Critical Glucose Levels:Adult <50 mg/dl or >400 mg/dl <40 mg/dl or >180 mg/dl Disposition Summary: 01/22/22 03:46 Hospitalization Ordered Hospitalization Status: Observation zuri Provider: Nely Hall cha Condition: Stable(01/22/22 03:46) zuri Problem: new(01/22/22 03:46) zuri Symptoms: have improved(01/22/22 03:46) zuri Bed/Room Type: Standard zuri Location: [facility] ER HOLD(01/22/22 03:56) Room Assignment: ERHOLD-(01/22/22 03:56) Diagnosis - Chest pain, unspecified(01/22/22 03:46) zuri - Syncope Near(01/22/22 03:46) zuri - Abnormal electrocardiogram [ECG] [EKG] zuri Forms: - Medication Reconciliation Form zuri - SBAR form zuri Signatures: Dispatcher [employer] EDMS Zoila Su RN RN Elias Sharpe MD MD cha Wood, Tiffany tw5 Cassy Hanson mb7 Ros Padilla RN RN Cheyenne Trinh PA PA sb3 Carmen Piña RN ll1 Corrections: (The following items were deleted from the chart) 03:14 03:09 Home zuri zuri 03:14 03:09 new zuri zuri 03:14 03:09 have improved zuri [facility] 03:09 Stable zuri [facility] 03:09 Syncope Near zuri zuri : 03:09 Chest pain, unspecified zuri [facility] 03:09 Type 1 diabetes mellitus with hyperglycemia zuri [facility] :56 03:46 Tele[facility]urg [facility]) [facility] 03:56 03:46 [facility]
--- NOTE | 2022-01-22 03:10 | ER ---
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 He was given two liters of fluids prior to arrival. Chief complaint: Patient states: "I have anxiety, and some chest pressure but they did an EKG and everything check out.". Coronavirus screen: Vaccine status: Patient reports receiving the 1st dose of the Covid vaccine. Moderna. Ebola Screen: Patient negative for fever greater than or equal to 101.5 degrees Fahrenheit, and additional compatible Ebola Virus Disease symptoms Patient denies exposure to infectious person. Patient denies travel to an Ebola-affected area in the 21 days before illness onset. Initial Sepsis Screen: Does the patient meet any 2 criteria? No. Patient's initial sepsis screen is negative. Does the patient have a suspected source of infection? No. Patient's initial sepsis screen is negative. Risk Assessment: Do you want to hurt yourself or someone else? Patient reports no desire to harm self or others. Onset of symptoms was January 21, 2022 at 23:00. 01:09 Method Of Arrival: EMS: [facility] tw5 01:09 Acuity: MARIE 3 tw5 Triage Assessment: 01:12 General: Appears in no apparent distress. Behavior is anxious. Pain: Denies pain. tw5 Neuro: Reports "I feel fine now.". Historical: - Allergies: 01:12 Aspirin; tw5 - Immunization history:: Flu vaccine is not up to date. - Social history:: Smoking status: Patient denies any tobacco usage or history of. Screenin:20 Abuse screen: Denies threats or abuse. Denies injuries from another. Nutritional asad screening: No deficits noted. Tuberculosis screening: No symptoms or risk factors identified. Fall Risk None identified. Assessment: 01:17 Reassessment: Patient appears in no apparent distress at this time. No changes from asad previously documented assessment. The pt was placed in the room at this time. 02:52 Reassessment: Patient appears in no apparent distress at this time. No changes from asad previously documented assessment. The pt is resting and awaiting results. NAD. He is watching TV. 03:28 Reassessment: The MD is at bedside discussing the findings with the pt. He is to stay asad overnight for observation, given the EKG results. He acknowledged understanding. 07:00 Reassessment: No changes from previously documented assessment. Report received from ll1 shift commander RN. Neuro: Level of Consciousness is awake, alert, obeys commands. Cardiovascular: No deficits noted. Rhythm is regular. Vital Signs: 01:09 BP 123 / 67; Pulse 73; Resp 18; Temp 98.8(O); Pulse Ox 96% on R/A; Weight 92.99 kg; tw5 Height 5 ft. 11 in. (180.34 cm); Pain 0/10; 02:18 BP 103 / 53 Supine; Pulse 75; asad 02:19 BP 113 / 66 Sitting; Pulse 71; asad 02:19 BP 80 / 59 Standing; Pulse 109; asad 02:53 BP 99 / 53; Pulse 87; Resp 16; Temp 98.2; Pulse Ox 100% on R/A; Pain 0/10; asad 05:39 BP 113 / 56; Pulse 68; Resp 16; Pulse Ox 98% on R/A; Pain 0/10; asad 01:09 Body Mass Index 28.59 (92.99 kg, 180.34 cm) tw5 ED Course: 00:55 Patient arrived in ED. kz 01:12 Triage completed. tw5 01:12 Arm band placed on left wrist. tw5 01:17 Ros Padilla, RN is Primary Nurse. asad 01:21 Elias Tony MD is Attending Physician. zuri 01:59 Chest Single View XRAY In Process Unspecified. EDMS 02:07 Comprehensive Metabolic Panel Sent. saad 02:07 D-Dimer Sent. asad 02:07 CBC with Diff Sent. asad 02:07 Troponin High Sensitivity Sent. asad 02:13 EKG done, by ED staff, reviewed by Elias Tony MD. mb7 02:13 Maintain EMS IV. Dressing intact. Good blood return noted. Site clean \\T\\ dry. Gauge \\T\\ mb 7 site: 20 gauge in right antecubital . 03:08 Kaz Macdonald MD is Referral Physician. zuri 03:44 Nely Hall MD is Hospitalizing Provider. zuri 04:08 SARS-COV-2 RT PCR (Document "Date of Onset" if Symptomatic) Sent. asad 04:32 television script writer on. Pulse ox on. NIBP on. asad 07:05 Patient has correct armband on for positive identification. Bed in low position. Call ll1 light in reach. Side rails up X2. Client placed on continuous cardiac and pulse oximetry monitoring. NIBP monitoring applied. 08:59 No provider procedures requiring assistance completed. Patient admitted, IV remains in ll1 place. Administered Medications: 02:18 Drug: NS 0.9% 1000 ml Route: IV; Rate: 1 bolus; Site: right forearm; asad 02:54 Follow up: IV Status: Completed infusion; IV Intake: 1000ml asad 04:07 Drug: PlaVIX (clopidogrel) 75 mg Route: PO; asad 09:00 Follow up: Response: No adverse reaction ll1 04:08 Drug: Lovenox (enoxaparin) 90 mg Route: Sub-Q; Site: abdomen; asad 09:00 Follow up: Response: No adverse reaction ll1 05:39 Drug: XANax (alprazolam) Tablet 0.25 mg Route: PO; asad 06:29 Follow up: Response: No adverse reaction asad Medication: 08:59 VIS not applicable for this client. ll1 Point of Care Testing: Blood Glucose: 08:59 Blood Glucose: 91 mg/dL; ll1 Ranges: Intake: 02:54 IV: 1000ml; Total: 1000ml. asad Outcome: 03:09 Discharge ordered by . zuri 03:46 Decision to Hospitalize by Provider. zuri 09:00 Admitted to Tele room ER HOLD. ll1 09:00 Condition: stable 09:00 Instructed on the need for admit. 14:04 Patient left the ED. ll1 Signatures: Dispatcher [employer] Elias Villeda MD MD cha Lewis, Lynsay, RN RN ll1 Guerline Chen tw5 Cassy Hanson mb7 Ros Padilla RN RN bo Zapata, Kelly kz Corrections: (The following items were deleted from the chart) 01:14 01:09 Acuity: MARIE 4 tw5 tw5
[2022-01-22] MEDS ORDERED: CLOPIDOGREL 75 MG TABLET ONE (04:05)
[2022-01-22] MEDS ORDERED: ENOXAPARIN 100 MG/ML SYR SQ ONE (04:05)
--- NOTE | 2022-01-22 04:54 | P.HP ---
Certification for Inpatient Patient admitted to: Observation With expected LOS: <2 Midnights Patient will require the following post-hospital care: None Practitioner: I am a practitioner with admitting privileges, knowledge of patient current condition, hospital course, and medical plan of care. Services: Services provided to patient in accordance with Admission requirements found in Title 42 Section 412.3 of the Code of Federal Regulations Patient History Date of Service: 01/22/22 Reason for admission: Chest Pain History of Present Illness: Patient is a 21 y/o male who presented to the ED with complaints of chest pain and near syncope. 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 EKG negative. VSS. Trop and ddimer negative. He was given fluids, plavix, and lovenox. Patient has an aspirin allergy. Upon my assessment of the patient, he is fixated on the monitor and what his vitals read. He is scared to go to sleep. Anxiety likely a large contributor to his symptoms. He does not feel comfortable being discharged. Will admit patient for observation. Home medications list reviewed: Yes - Past Medical/Surgical History Diabetic: Yes -: Type 1 Diabetes Past Surgical History: Patient denies surgical history Psychosocial/ Personal History: Patient works for EMS. - Social History Smoking Status: Never smoker Alcohol use: No CD- Drugs: No Caffeine use: Yes Place of Residence: Home Review of Systems Respiratory: Shortness of Breath Cardiovascular: Chest Pain Physical Examination - Physical Exam General: Alert, In no apparent distress, Other (anxious) HEENT: Atraumatic, PERRLA, Mucous membr. moist/pink, EOMI, Sclerae nonicteric Neck: Supple, 2+ carotid pulse no bruit, No LAD, Without JVD or thyroid abnormality Respiratory: Clear to auscultation bilaterally, Normal air movement Cardiovascular: Regular rate/rhythm, Normal S1 S2 Gastrointestinal: Normal bowel sounds, No tenderness Musculoskeletal: No tenderness Integumentary: No rashes Neurological: Normal gait, Normal speech, Normal strength at 5/5 x4 extr, Normal tone, Normal affect - Studies Laboratory Data (last 24 hrs) 01/22/22 01:58: WBC 13.0 H, Hgb 15.5, Hct 45.7, Plt Count 256 01/22/22 01:58: Sodium 138, Potassium 3.5, BUN 15, Creatinine 0.93, Glucose 152 H, Total Bilirubin 0.4, AST 12 L, ALT 21, Alkaline Phosphatase 115 Assessment and Plan - Problems (Diagnosis) (1) Chest pain Current Visit: Yes Status: Acute Qualifiers: Chest pain type: unspecified Qualified Code(s): R07.9 - Chest pain, unspecified (2) Near syncope Current Visit: Yes Status: Acute (3) Anxiety Current Visit: Yes Status: Acute - Plan -Initial cardiac workup negative. Will repeat troponin q6x2. -Anxiety likely the underlying cause but will also check TSH and T4. Ordered 0.25 xanax. -Cardiology consult -Received plavix and lovenox in the ED. has an allergy aspirin -Continue to monitor on telemetry Discharge Plan: Home Plan to discharge in: 24 Hours - Advance Directives Does patient have a Living Will: No Does patient have a Durable POA for Healthcare: No - Code Status/Comfort Care Code Status Assessed: Yes (Full) Critical Care: No Time Spent Managing Pts Care (In Minutes): 50
[2022-01-22] MEDS ORDERED: ALPRAZOLAM 0.25 MG TABLET ONE (05:40)
[2022-01-22] MEDS ORDERED: ACETAMINOPHEN 500 MG TAB PO PRN (07:27)
[2022-01-22] MEDS ORDERED: ONDANSETRON 4 MG/2 ML VIAL IV PRN (07:27)
[2022-01-22] MEDS: INSULIN -REGULAR HUMAN 50 UNIT/0.5 ML ML SQ SCH ×2 (07:30→11:30)
[2022-01-22 08:19] LABS: Thyroid Stimulating Hormone 2.21 uIU/mL (0.360-3.740)
[2022-01-22 08:51] VITALS: BMI 28.1
[2022-01-22] MEDS ORDERED: ENOXAPARIN 40 MG/0.4 ML SQ SCH (09:00)
--- NOTE | 2022-01-22 11:05 | EKG ---
Test Date: 2022-01-22 Test Time: 03:20:18 Medical Doctor Md: MEASUREMENT RESULTS: Intervals: Rate: 69 TN: 142 QRSD: 92 QT: 394 QTc: 422 [place]: P: TN: 142 QRS: 128 T: 151 INTERPRETIVE STATEMENTS: Normal sinus rhythm normal ecg Electronically Signed On 01-22-22 11:05:09 CDT by Kaz Macdonald
--- NOTE | 2022-01-22 11:06 | EKG ---
Test Date: 2022-01-22 Test Time: 02:05:50 Auditing Coder: MARGE MEASUREMENT RESULTS: Intervals: Rate: 75 KS: 158 QRSD: 90 QT: 380 QTc: 424 [place]: P: 109 KS: 158 QRS: 113 T: 174 INTERPRETIVE STATEMENTS: Normal sinus rhythm with sinus arrhythmia Electronically Signed On 01-22-22 11:05:40 CDT by Kaz Macdonald
[2022-01-22 13:29] LABS: Urine Blood Negative (Negative); Urine Glucose Negative (Negative); Urine Protein Negative (Negative); Urine Specific Gravity 1.025 (1.005-1.030)
[2022-01-22 13:44] LABS: Urine Appearance CLEAR (Clear); Urine Bilirubin NEGATIVE (Negative); Urine Blood NEGATIVE (Negative); Urine Color YELLOW (Yellow); Urine Glucose NEGATIVE (Negative); Urine Microscopic Reflex NO UMIC; Urine Protein NEGATIVE (Negative)
--- NOTE | 2022-01-22 13:48 | P.DS ---
Discharge Date: 01/22/22 Disposition: ROUTINE DISCHARGE Discharge Condition: GOOD Reason for Admission: Chest Pain Brief History of Present Illness: Patient is a 21 y/o male who presented to the ED with complaints of chest pain and near syncope. 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 EKG negative. VSS. Trop and ddimer negative. He was given flu ids, plavix, and lovenox. Patient has an aspirin allergy. Upon my assessment of the patient, he is fixated on the monitor and what his vitals read. He is scared to go to sleep. Anxiety likely a large contributor to his symptoms. He does not feel comfortable being discharged. Will admit patient for observation. Vital Signs/Physical Exam: Temp Pulse Resp BP Pulse Ox 98.3 F 75 15 103/52 L 96 01/22/22 11:34 01/22/22 11:34 01/22/22 11:34 01/22/22 11:34 01/22/22 11:34 General: Alert, In no apparent distress, Oriented x3 Laboratory Data at Discharge: WBC 13.0 K/uL (4.3-10.9) H 01/22/22 01:58 Hgb 15.5 g/dL (13.6-17.9) 01/22/22 01:58 Hct 45.7 % (39.6-49.0) 01/22/22 01:58 Plt Count 256 K/uL (152-406) 01/22/22 01:58 Sodium 138 mmol/L (136-145) 01/22/22 01:58 Potassium 3.5 mmol/L (3.5-5.1) 01/22/22 01:58 BUN 15 mg/dL (7-18) 01/22/22 01:58 Creatinine 0.93 mg/dL (0.55-1.3) 01/22/22 01:58 Glucose 152 mg/dL (74-106) H 01/22/22 01:58 Total Bilirubin 0.4 mg/dL (0.2-1.0) 01/22/22 01:58 AST 12 U/L (15-37) L 01/22/22 01:58 ALT 21 U/L (12-78) 01/22/22 01:58 Alkaline Phosphatase 115 U/L (45-117) 01/22/22 01:58 Lipase 41 U/L (73-393) L 01/22/22 07:40 Home Medications: Semaglutide [Ozempic] 1X 01/22/22 clonazePAM [Klonopin] 0.5 mg PO TID PRN #60 tablet 01/22/22 New Medications: clonazePAM [Klonopin] 0.5 mg PO TID PRN #60 tablet PRN Reason: Anxiety Physician Discharge Instructions: -DC IV and DC home -Follow-up with PCP in 1 to 2 weeks -Follow-up with Cardiology in 1 to 2 weeks -Please call Dr. Hall at [phone] if any questions regarding hospital stay -Please call nursing station at [phone] if any nursing or medication questions -Return to the emergency room if symptoms worsen Diet: Regular Activity: Fall precautions Followup: Unknown,U [Primary Care Provider] - Time spent managing pt's care (in minutes): 35
[2022-01-22 13:50] LABS: Barbiturates NEGATIVE (NEGATIVE); Benzodiazepines NEGATIVE (NEGATIVE); Cocaine NEGATIVE (NEGATIVE); METHAMPHETAM NEGATIVE (NEGATIVE); Methadone NEGATIVE (NEGATIVE); Opiates NEGATIVE (NEGATIVE); Phencyclidine NEGATIVE (NEGATIVE); THC Cannibis NEGATIVE (NEGATIVE)
[2022-01-22 13:56] VITALS: BP 115/54; TEMP 98.6
[2022-01-22 14:16] VITALS: O2SAT 98
--- NOTE | 2022-01-23 19:48 | CON ---
Date of Consultation: 01/22/2022 Reason For Consultation: Chest pain and shortness of breath. History Of Present Illness: Mr. Alston is 21 years old. He works in emergency medical services, has diabetes. He only takes aspirin. Came in with sharp chest pain over the left lateral wall with maude rtness of breath and possible anxiety according to him. Denies any PND, orthopnea, pedal edema, palp itation, or syncope. Chest x-ray is unremarkable. EKG is nonspecific. Troponin is negative. BNP i s negative. He had a glucose of 152 and a white count of 13. Blood pressure was 99/52 when he came in. He is asymptomatic right now. Past Medical History: Diabetes. Allergies: TO ASPIRIN. Review of Systems: Negative. Social History: Negative. Family History: Positive for heart disease. Medications: Include Ozempic. Physical Examination: Vital Signs: Stable, afebrile. HEENT: Negative. Neck: Supple with no bruit. Chest: Clear. Cardiac: Regular rhythm and rate. No murmurs, gallops, or rubs. Abdomen: Benign. Extremities: Revealed no clubbing, cyanosis, or edema. Diagnostic Data: As stated earlier. Impression And Plan: Atypical chest pain in a diabetic, although he is 21. I think reasonable to do a routine stress test on him. He presumably has had a recent normal echo. He can go home. I will make arrangements for an outpatient stress test at his convenience. QUAN/GUMARO Voice ID: [id number] Report ID: [id number]
--- NOTE | 2022-01-23 22:18 | RAD REPORT ---
EXAM DESCRIPTION: Chest Single View CLINICAL HISTORY: 21 years Male, CHEST PAIN COMPARISON: None. FINDINGS: No consolidation. No pneumothorax. No significant pleural effusion. Cardiomediastinal silhouette is unremarkable. Osseous structures are unremarkable. IMPRESSION: No acute findings. Electronically signed by: Elfego Santos MD 01/22/2022 2:25 AM CDT Due to temporary technical issues with the PACS/Fluency reporting system, reports are being signed by the in house radiologists without review as a courtesy to insure prompt reporting. The interpreting radiologist is fully responsible for the content of the report.
== END 2022-01-22 14:00 | disposition home or self-care (01) ==
LOC: ER 00:53 → ERHOLD 04:46
PROVIDERS: ADMIT Hospitalist; ATTEND Hospitalist
DX: R07.89 Other chest pain (principal); R55 Syncope and collapse; F41.9 Anxiety disorder, unspecified; R06.02 Shortness of breath; E10.9 Type 1 diabetes mellitus without complications; R94.31 Abnormal electrocardiogram [ECG] [EKG]; Z20.822 Contact with and (suspected) exposure to COVID-19; Z88.6 Allergy status to analgesic agent; Z82.49 Family history of ischemic heart disease and other diseases of the circulatory system
CPT/HCPCS: 93005 ×2; 85025; 36415; 82947 ×2; 85379; 84443; 81003 ×2; 84484 ×2; 84439; 83690; 80053; 80307; 71045; 96360; 96372; 99285; U0003; J1650 ×2; J7030; G0378 ×2